=== PATIENT | female | born 1995 | race Caucasian/White ===

== ENCOUNTER 2018-05-05 20:44 | Emergency (ER) | payer BC, MEDICAID ==
[2018-05-05] MEDS ORDERED: Ondansetron 4 MG/2 ML SDV IVPUSH ONE (21:03)
[2018-05-05] MEDS ORDERED: Sodium Chloride 0.9% 1,000 ML IV ONE (21:03)
--- NOTE | 2018-05-05 21:23 | EDM.PDOC ---
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 Was at home when she felt a gush of warm fluids from her vagina. She was sitting on the toilet, when she finished urinating, and then felt another gush of fluids which she denies is urine. Is 17 weeks . . Follows regularly for OB care. Has had 2 amnioscentesis, genetic testing, and a couple of ultrasounds. Apparently, a abnormality has been identified to baby's bladder. She has had some mild abdominal cramping to her suprapubic and lower abdominal areas. Denies fever and chills. Is otherwise feeling well. No low back pain.] Review of systems: As per history of present illness and below otherwise all systems reviewed and negative. Past medical history: As per history of present illness and as reviewed below otherwise noncontributory. Surgical history: As per history of present illness and as reviewed below otherwise noncontributory. Social history: No reported history of drug or alcohol abuse. Family history: As per history of present illness and as reviewed below otherwise noncontributory. Physical exam: HEENT: Atraumatic, normocephalic. Genitourinary: Normal external genitalia. Cervix is closed. No bleeding or products of conception in vaginal canal. Normal pelvic exam. Rectal: Deferred. Extremities: Atraumatic. Neurovascular unremarkable. Neuro: Awake, alert, oriented. Motor and sensory unremarkable throughout. Exam nonfocal. Diagnostics: [CBC, UA, urine culture, ABO/RH, quantitative Hcg, OB ultrasound] Therapeutics: [1 liter NS Zofran 8mg IV] Impression: [UTI , 17 weeks] Plan: [ heart tones 148-159. WBC 9.57. UA shows WBC's, + nitrites. Urine culture is pending. Quant hcg <100,000. Rx written for Curtisbid (#14) si po BID 0 RF 's. Patient states that at her last OB appointment she was told that she has a UTI, and that antibiotics were called to her local pharmacy. She has been unable to afford the cost of this medication, so didn't pick it up. She was informed that an untreated UTI could cause her to miscarry. ] Definitive disposition and diagnosis as appropriate pending reevaluation and review of above. (Martha Joseph) Patient with known high risk and small amount of amniotic fluid presents as above she is followed by Dr. 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: Other OB/BYN History: this is 1st - Infectious Disease History Infectious Disease History: Reports: Chicken Pox - Past Surgical History Female Surgical History: Reports: Other (See Below) Other Female Surgeries/Procedures: "stretchng" of urethra <Martha Joseph - Last Filed: 05/05/18 22:52> Social & Family History - Tobacco Use Smoking Status *Q: Former Smoker Used Tobacco, but Quit: Yes Month/Year Tobacco Last Used: 02/09 - Caffeine Use Caffeine Use: Reports: Soda, Tea - Recreational Drug Use Recreational Drug Use: No <Martha Joseph - Last Filed: 05/05/18 22:52> ED ROS GENERAL - Review of Systems Review Of Systems: ROS reveals no pertinent complaints other than HPI. <Martha Joseph - Last Filed: 05/05/18 22:52> - Review of Systems Review Of Systems: See Below <Shane Lucero - Last Filed: 05/06/18 01:03> ED EXAM - Physical Exam Exam: See Below <Martha Joseph - Last Filed: 05/05/18 22:52> - Vital Signs Last Recorded V/S: Last Vital Signs Temp 98.4 F 05/05/18 23:16 Pulse 79 05/05/18 23:16 Resp 18 05/05/18 23:16 BP 118/76 05/05/18 23:16 Pulse Ox 98 05/05/18 23:16 - Orders/Labs/Meds Orders: Active Orders 24 hr Category Date Time Status OB 2 Or 3 Tri Ea Addl Gest [US] Stat Exams 05/05/18 22:47 Taken CULTURE URINE [RM] Stat Lab 05/05/18 22:52 Ordered UA W/MICROSCOPIC [URIN] Stat Lab 05/05/18 20:53 Ordered Labs: Laboratory Tests 05/05/18 05/05/18 05/05/18 Range/Units 20:53 21:33 21:33 WBC 9.57 (4.0-11.0) K/uL RBC 4.10 L (4.30-5.90) M/uL Hgb 13.0 (12.0-16.0) g/dL Hct 35.9 L (36.0-46.0) % MCV 87.6 (80.0-98.0) fL MCH 31.7 (27.0-32.0) pg MCHC 36.2 (31.0-37.0) g/dL RDW Std Deviation 42.5 (28.0-62.0) fl RDW Coeff of Anjel 13 (11.0-15.0) % Plt Count 200 (150-400) K/uL MPV 10.60 (7.40-12.00) fL Neut % (Auto) 62.4 (48.0-80.0) % Lymph % (Auto) 27.3 (16.0-40.0) % Lake % (Auto) 9.8 (0.0-15.0) % Eos % (Auto) 0.3 (0.0-7.0) % Baso % (Auto) 0.2 (0.0-1.5) % Neut # (Auto) 6.0 H (1.4-5.7) K/uL Lymph # (Auto) 2.6 H (0.6-2.4) K/uL Lake # (Auto) 0.9 H (0.0-0.8) K/uL Eos # (Auto) 0.0 (0.0-0.7) K/uL Baso # (Auto) 0.0 (0.0-0.1) K/uL Nucleated RBC % 0.0 /100WBC Nucleated RBCs # 0 K/uL HCG, Quant 690114.0 mIU/mL Urine Color YELLOW Urine Appearance CLEAR Urine pH 6.0 (5.0-8.0) Ur Specific [place] 1.015 (1.001-1.035) Urine Protein NEGATIVE (NEGATIVE) mg/dL Urine Glucose (UA) NEGATIVE (NEGATIVE) mg/dL Urine Ketones NEGATIVE (NEGATIVE) mg/dL Urine Occult Blood NEGATIVE (NEGATIVE) Urine Nitrite POSITIVE H (NEGATIVE) Urine Bilirubin NEGATIVE (NEGATIVE) Urine Urobilinogen 0.2 (<2.0) EU/dL Ur Leukocyte Esterase MODERATE (NEGATIVE) Urine RBC 0-1 (0-2/HPF) Urine WBC 8-10 (0-5/HPF) Ur Epithelial Cells RARE (NONE-FEW) Urine Bacteria 3+ H (NEGATIVE) Blood Type 05/05/18 Range/Units 21:33 WBC (4.0-11.0) K/uL RBC (4.30-5.90) M/uL Hgb (12.0-16.0) g/dL Hct (36.0-46.0) % MCV (80.0-98.0) fL MCH (27.0-32.0) pg MCHC (31.0-37.0) g/dL RDW Std Deviation (28.0-62.0) fl RDW Coeff of Anjel (11.0-15.0) % Plt Count (150-400) K/uL MPV (7.40-12.00) fL Neut % (Auto) (48.0-80.0) % Lymph % (Auto) (16.0-40.0) % Lake % (Auto) (0.0-15.0) % Eos % (Auto) (0.0-7.0) % Baso % (Auto) (0.0-1.5) % Neut # (Auto) (1.4-5.7) K/uL Lymph # (Auto) (0.6-2.4) K/uL Lake # (Auto) (0.0-0.8) K/uL Eos # (Auto) (0.0-0.7) K/uL Baso # (Auto) (0.0-0.1) K/uL Nucleated RBC % /100WBC Nucleated RBCs # K/uL HCG, Quant mIU/mL Urine Color Urine Appearance Urine pH (5.0-8.0) Ur Specific [place] (1.001-1.035) Urine Protein (NEGATIVE) mg/dL Urine Glucose (UA) (NEGATIVE) mg/dL Urine Ketones (NEGATIVE) mg/dL Urine Occult Blood (NEGATIVE) Urine Nitrite (NEGATIVE) Urine Bilirubin (NEGATIVE) Urine Urobilinogen (<2.0) EU/dL Ur Leukocyte Esterase (NEGATIVE) Urine RBC (0-2/HPF) Urine WBC (0-5/HPF) Ur Epithelial Cells (NONE-FEW) Urine Bacteria (NEGATIVE) Blood Type O POSITIVE Meds: Medications Discontinued Medications Generic Name Dose Route Start Last Admin Trade Name Freq PRN Reason Stop Dose Admin Sodium Chloride 1,000 mls @ 999 mls/hr 05/05/18 21:03 05/05/18 21:49 Normal Saline IV 05/05/18 22:03 999 mls/hr STAT ONE Administration Ondansetron HCl 8 mg 05/05/18 21:03 05/05/18 21:49 Zofran IVPUSH 05/05/18 21:04 8 mg ONETIME ONE Administration Departure <Martha Joseph - Last Filed: 05/05/18 22:52> - Departure Time of Disposition: 01:02 Condition: Fair <Shane Lucero - Last Filed: 05/06/18 01:03> - Departure Disposition: Home, Self-Care 01 Clinical Impression: UTI (urinary tract infection) - Discharge Information Referrals: PCP,None [Primary Care Provider] - Forms: ED Department Discharge Additional Instructions: The following information is given to patients seen in the emergency department who are being discharged to home. This information is to outline your options for follow-up care. We provide all patients seen in our emergency department with a follow-up referral. The need for follow-up, as well as the timing and circumstances, are variable depending upon the specifics of your emergency department visit. If you don't have a primary care physician on staff, we will provide you with a referral. We always advise you to contact your personal physician following an emergency department visit to inform them of the circumstance of the visit and for follow-up with them and/or the need for any referrals to a consulting specialist. The emergency department will also refer you to a specialist when appropriate. This referral assures that you have the opportunity for follow-up care with a specialist. All of these measure are taken in an effort to provide you with optimal care, which includes your follow-up. Under all circumstances we always encourage you to contact your private physician who remains a resource for coordinating your care. When calling for follow-up care, please make the office aware that this follow-up is from your recent emergency room visit. If for any reason you are refused follow-up, please contact the [facility] emergency department at and asked to speak to the emergency department charge nurse. - My Orders Last 24 Hours: My Active Orders 05/05/18 22:47 OB 2 Or 3 Tri Ea Addl Gest [US] Stat 05/05/18 22:52 CULTURE URINE [RM] Stat - Assessment/Plan Last 24 Hours: My Active Orders 05/05/18 22:47 OB 2 Or 3 Tri Ea Addl Gest [US] Stat 05/05/18 22:52 CULTURE URINE [RM] Stat
--- NOTE | 2018-05-08 07:29 | US ---
EXAM DATE: 05/05/18 PATIENT'S AGE: 23 Patient: JOI PALOMARES Facility: [facility] Site . Site : 1995 Study: US-OB Pelvis [id number]/11/2018 11:17:06 PM Ordering Physician: Doctor Werner Final Report: HISTORY: Leaking fluid x1 day. 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 History of 2 recent amniocentesis. FINDINGS: There is a single viable intrauterine fetus with cardiac rate of 135 beats per minute. Sent is anterior. Amniotic fluid is subjectively low. A 4.8 cm cystic structure is seen within the middle abdomen or pelvis. There does appear to be fluid distending the renal pelves. IMPRESSION: 1. Low amniotic fluid. 2. 4.8 cm cystic structure seen within the pelvis. Question bilateral hydronephrosis. Under report was entered into [facility] by Dr. Nicole 05 May 2018 at 2355 hours. Dictated by Marla Mccauley MD @ May 07 2018 6:56PM Signed by: Marla Mccauley MD @05/08/2018 1:01:28 AM (Electronic Signature) Report Signed by Proxy. NORM
== END 2018-05-06 01:23 | disposition home or self-care (01) ==
LOC: MW.ED 20:44
DX: O23.42 Unspecified infection of urinary tract in pregnancy, second trimester (principal); Z3A.17 17 weeks gestation of pregnancy
CPT/HCPCS: 36415; 76810; 81001; 84702; 85025; 86900; 86901; 96361; 96374; 99284; J2405; J7040; 99283

== ENCOUNTER 2018-06-16 23:15 | Inpatient (IN) | payer BC ==
[2018-06-16] MEDS ORDERED: Oxytocin/0.9 % Sodium Chloride 30 UNIT/500 ML BAG ONE (23:36)
[2018-06-16] MEDS ORDERED: Oxytocin/0.9 % Sodium Chloride 30 UNIT/500 ML BAG IV SCH (23:45)
[2018-06-17] MEDS ORDERED: Methylergonovine 0.2 MG/1 ML Amp IM PRN ×2 (00:11→00:17)
[2018-06-17] MEDS ORDERED: Sodium Chloride 0.9% 2.5 ML Syringe FLUSH PRN ×2 (00:11→00:17)
[2018-06-17] MEDS ORDERED: Sodium Chloride 0.9% 10 ML Syringe FLUSH PRN ×2 (00:11→00:17)
[2018-06-17] MEDS ORDERED: Misoprostol 200 MCG Tab PO PRN ×2 (00:11→00:17)
[2018-06-17] MEDS ORDERED: Lidocaine 1% 50 ML MDV INJECT PRN ×2 (00:11→00:17)
[2018-06-17] MEDS ORDERED: Water For Irrigation,Sterile 1,000 ML Container IRR PRN ×2 (00:11→00:17)
[2018-06-17] MEDS ORDERED: Tranexamic Acid 1,000 MG in Sodium Chloride 0.9% 100 ML IV PRN ×2 (00:11→00:17)
[2018-06-17] MEDS ORDERED: Carboprost Tromethamine 250 MCG/1 ML Amp IM PRN ×2 (00:11→00:17)
[2018-06-17] MEDS ORDERED: Lactated Ringers 1,000 ML IV SCH ×2 (00:15→00:30)
[2018-06-17] MEDS ORDERED: Acetaminophen 325 MG Tab PO PRN (00:17)
[2018-06-17] MEDS ORDERED: Lanolin 100% Cream 7 GM Tube TOP PRN (00:24)
[2018-06-17] MEDS ORDERED: Benzocaine/Menthol 20%-0.5% Spray 78 GM Cannister TOP PRN (00:24)
[2018-06-17] MEDS ORDERED: Acetaminophen 500 MG Tab PO PRN ×2 (00:24)
[2018-06-17] MEDS ORDERED: Ibuprofen 400 MG Tab PO PRN (00:24)
[2018-06-17] MEDS ORDERED: Docusate Sodium 100 MG Cap PO PRN (00:24)
[2018-06-17] MEDS ORDERED: Witch Hazel Medicated Pads 40/Jar TOP PRN (00:24)
[2018-06-17] MEDS ORDERED: oxyCODONE 5 MG Tab PO PRN (00:24)
[2018-06-17] MEDS ORDERED: Bisacodyl 10 MG Supp RECTAL PRN (00:24)
[2018-06-17] MEDS ORDERED: Ibuprofen 800 MG Tab PO PRN (00:24)
[2018-06-17] MEDS ORDERED: Oxytocin/0.9 % Sodium Chloride 30 UNIT/500 ML BAG IV SCH (00:30)
--- NOTE | 2018-06-17 00:36 | PCM.DEL ---
L & D Note - General Info Date of Service: 06/17/18 Mother's Due Date: 06/03/18 - Delivery Note Labor: Spontaneous Delivery Outcome: Stillbirth Episiotomy Type: None Laceration: None Placenta: Intact, Spontaneous (Female delivered at 1130pm) Score 1 min: 0 Score 5 min: 0 Delivery Comments (Free Text/Narrative):: Female , fetus examined , abdomen distended and enlarged , complete placenta , placenta block sent for karyotype - General Info Date of Service: 06/16/18 - Patient Data Weight - Most Recent: 108.862 kg Med Orders - Current: Current Medications Acetaminophen (Tylenol) 650 mg PO Q4H PRN PRN Reason: mild pain and fever Carboprost Tromethamine (Hemabate Ds) 250 mcg IM ASDIRECTED PRN PRN Reason: Post Hemorrhage Lactated Ringer's (Ringers, Lactated) 1,000 mls @ 150 mls/hr IV ASDIRECTED ARMANDO Oxytocin/Sodium Chloride (Oxytocin 30 Unit/500 Ml-Ns) 30 unit in 500 mls @ 999 mls/hr IV TITRATE ARMANDO Tranexamic Acid 1,000 mg/ (Sodium Chloride) 110 mls @ 660 mls/hr IV ONETIME PRN PRN Reason: Bleeding Lidocaine HCl (Xylocaine 1%) 50 ml INJECT .ONCE PRN PRN Reason: Laceration repair Methylergonovine Maleate (Methergine) 0.2 mg IM ASDIRECTED PRN PRN Reason: Post Hemorrhage Misoprostol (Cytotec) 200 mcg PO .ONCE PRN PRN Reason: Post Hemorrhage Sodium Chloride (Saline Flush) 10 ml FLUSH ASDIRECTED PRN PRN Reason: Keep Vein Open Sodium Chloride (Saline Flush) 2.5 ml FLUSH ASDIRECTED PRN PRN Reason: Keep Vein Open Sterile Water (Sterile Water For Irrigation) 1,000 ml IRR ASDIRECTED PRN PRN Reason: delivery Discontinued Medications Oxytocin/Sodium Chloride (Oxytocin 30 Unit/500 Ml-Ns) Confirm Administered Dose 30 unit in 500 mls @ as directed .ROUTE .STK-MED ONE Stop: 06/16/18 23:37 - Problem List & Annotations (1) Stillborn, abnormal SNOMED Code(s): 212226293 Code(s): P95 - STILLBIRTH Status: Acute Current Visit: Yes - Problem List Review Problem List Initiated/Reviewed/Updated: Yes - My Orders Last 24 Hours: My Active Orders 06/17/18 00:17 Patient Status [ADT] Routine Heart Tones [RC] CONTINUOUS May Shower [RC] ASDIRECTED Notify Provider [RC] PRN Up ad Minnie [RC] ASDIRECTED Vital Signs [RC] PER UNIT ROUTINE CBC W/O DIFF,HEMOGRAM [HEME] Routine TYPE AND SCREEN [BBK] Routine Acetaminophen [Tylenol] 650 mg PO Q4H PRN Carboprost Tromethamine [Hemabate DS] 250 mcg IM ASDIRECTED PRN Lidocaine 1% [Xylocaine 1%] 50 ml INJECT .ONCE PRN Methylergonovine [Methergine] 0.2 mg IM ASDIRECTED PRN Sodium Chloride 0.9% [Saline Flush] 10 ml FLUSH ASDIRECTED PRN Sodium Chloride 0.9% [Saline Flush] 2.5 ml FLUSH ASDIRECTED PRN Tranexamic Acid [Cyklokapron] 1,000 mg Sodium Chloride 0.9% [Normal Saline] 100 ml IV ONETIME Water For Irrigation,Sterile [Sterile Water for Irrigation] 1,000 ml IRR ASDIRECTED PRN miSOPROStol [Cytotec] 200 mcg PO .ONCE PRN Scalp Electrode [WOMSER] Per Unit Routine Peripheral IV Insertion Adult [OM.PC] Routine 06/17/18 00:21 DRUG SCREEN, URINE [URCHEM] Urgent 06/17/18 00:22 ANTICARDIOLIPIN AB, IGG/M, QN [REF] Urgent LUPUS ANTICOAGULANT PANEL [REF] Urgent RPR [REF] Urgent 06/17/18 00:23 PARVOVIRUS B19, HUMAN, IGG/IGM [REF] Urgent TSH [CHEM] Urgent 06/17/18 00:24 Patient Status [ADT] Routine May Shower [RC] ASDIRECTED Up ad Minnie [RC] ASDIRECTED Vital Signs [RC] PER UNIT ROUTINE Acetaminophen [Tylenol Extra Strength] 1,000 mg PO Q4H PRN Acetaminophen [Tylenol Extra Strength] 500 mg PO Q4H PRN Benzocaine/Menthol [Dermoplast Pain Relief 20%-0.5% [place]] 78 gm TOP ASDIRECTED PRN Bisacodyl [Dulcolax] 10 mg RECTAL .ONCE PRN Docusate Sodium [Colace] 100 mg PO BID PRN Ibuprofen [Motrin] 400 mg PO Q4H PRN Ibuprofen [Motrin] 800 mg PO Q6H PRN Lanolin [Lansinoh HPA] See Dose Instructions TOP ASDIRECTED PRN Witch Kaity [Tucks] 1 pad TOP ASDIRECTED PRN oxyCODONE 5 mg PO Q2H PRN Assess Lochia [WOMSER] Per Unit Routine Assess Uterine Involution [WOMSER] Per Unit Routine Peripheral IV Discontinue [OM.PC] Routine Resuscitation Status Routine 06/17/18 00:30 Lactated Ringers @ 150 MLS/HR(1000ml) Lactated Ringers [Ringers, Lactated] 1, 000 ml IV ASDIRECTED Oxytocin/0.9 % Sodium Chloride [Oxytocin 30 Unit/500 ML-NS] 30 unit in 500 ml IV TITRATE 06/18/18 05:11 HEMOGLOBIN/HEMATOCRIT,HH [HEME] Timed
--- NOTE | 2018-06-17 13:40 | OR ---
SURGEON: ADAM HUMPHREYS DATE OF PROCEDURE: PREOPERATIVE DIAGNOSES: 1. A 23-year-old, G1, P0, non-clinic patient. 2. Stillborn. 3. History of congenital anomaly. POSTOPERATIVE DIAGNOSES: 1. A 23-year-old, G1, P0, non-clinic patient. 2. Stillborn. 3. History of congenital anomaly. PROCEDURE: Vaginal delivery. ESTIMATED BLOOD LOSS: 100 mL. ANESTHESIA: None. FINDINGS: Stillborn fetus delivered at 11:30 p.m. Stillborn appeared , however had a distended abdomen. Female . The placenta block sent for karyotype, placenta sent also. Patient declined autopsy. HISTORY: She is a 23-year-old, G1, P0. Patient is a non-clinic patient, receiving care at [place] with Dr. Whitfield. The patient said she had a history of cloacal malformation and was also being followed by in [place]. Patient came in complaining of some discharge and pain. She immediately delivered the fetus with accompanying placenta. The patient was delivery was complete. Manual massage was done. Pitocin started. The patient was given grief counseling and she declined any autopsy. However, she agreed to pathology and karyotype examination. The patient was left with family in stable condition. The patient desired to be discharged the same day within a couple of hours and was discharged to follow up with Dr. Whitfield in [place]. PRAMOD / ROSA /[id number]
== END 2018-06-17 04:30 | disposition home or self-care (01) | DRG 560 ==
LOC: MW.OBCHECK 23:15 → MW.OB 23:16 → MW.OBCHECK 06-17 00:17 → MW.OB 06-17 00:17 → OBSVTOIN 06-17 00:24
PROVIDERS: ADMIT Obstetrics & Gynecology; ATTEND Obstetrics & Gynecology
PROC: 10E0XZZ Delivery of Products of Conception, External Approach (ICD-10-PCS; principal; 2018-06-17)
DX: O36.4XX0 Maternal care for intrauterine death, not applicable or unspecified (principal); Z3A.23 23 weeks gestation of pregnancy; Z37.1 Single stillbirth; Q43.7 Persistent cloaca
CPT/HCPCS: 36415; 59409; 80305-QW; 84443; 85027; 85613; 85730; 86147; 86592; 86747; 86850; 86900; 86901; A9270-GY; J2590; J7120